=== PATIENT | female | born 1990 | race Caucasian/White ===

== ENCOUNTER 2018-11-08 15:59 | Observation (INO) ==
[2018-11-08] MEDS ORDERED: Isovue-370 500 ML BOTTLE IVP ONE (16:26)
[2018-11-08] MEDS ORDERED: *HR* HYDROcodone/Acet 10/325 mg TABLET PO ONE (16:28)
--- NOTE | 2018-11-08 16:29 | Emergency Department Note ---
Disposition Clinical Impression: Preseptal cellulitis of right eye Disposition: Admitted As Inpatient Condition: Good Time of Disposition: 22:57 General Adult HPI - General Chief complaint: ED General Medical Stated complaint: R eye swelling Time Seen by Provider: 11/08/18 16:16 Source: patient - History of Present Illness Pain Scale: 9 - Related Data Previous Rx's Medication Instructions Recorded cephALEXin [Keflex] 500 mg PO QID #30 capsule 06/14/18 HYDROcodone/Acet 5/325 mg [[place] 1 tab PO Q6H PRN 2 Days #4 tab 11/06/18 5-325 mg] Allergies Allergy/AdvReac Type Severity Reaction Status Date / Time No Known Allergies Allergy Verified 03/17/18 04:03 Past Medical History - Past Medical History Medical history: Reports: no medical history Psychiatric history: Reports: no psych history - Social History Smoking Status: Current every day smoker Smokeless Tobacco Status: No Alcohol use: Reports: none Drug use: Reports: marijuana Physical Exam - General General appearance: alert, in no apparent distress Course Vital Signs Temperature 98.4 F 11/08/18 16:23 Pulse Rate 94 11/08/18 16:23 Respiratory Rate 14 11/08/18 16:23 Blood Pressure 122/81 11/08/18 16:23 O2 Sat by Pulse Oximetry 100 11/08/18 16:23 Temperature 98.5 F 11/08/18 21:53 Pulse Rate 74 11/08/18 21:53 Respiratory Rate 14 11/08/18 21:53 Blood Pressure 103/61 11/08/18 21:53 O2 Sat by Pulse Oximetry 98 11/08/18 21:53 Oxygen Delivery Oxygen Delivery Room Air Medical Decision Making - Lab Data Result diagrams: 11/08/18 16:36 11/08/18 16:36 Lab Results 11/08/18 11/08/18 11/08/18 Range/Units 16:36 16:36 16:36 WBC 8.2 (4.3-11.1) K/mcL RBC 3.75 L (3.82-4.97) M/mcL Hgb 11.1 L (11.5-15.4) g/dL Hct 33.7 L (35.3-44.9) % MCV 89.9 (83.0-100.0) fL MCH 29.6 (28.0-33.3) pg MCHC 32.9 (31.6-35.5) g/dL RDW 12.2 (11.5-14.5) % Plt Count 246 (140-400) K/mcL MPV 9.6 (9.4-12.4) fL Immature Gran % 0.2 (0-4) % Seg Neutrophils % 70.7 % Lymphocytes % 21.3 % Monocytes % 6.2 % Eosinophils % 1.1 % Basophils % 0.5 % Neutrophils # 5.8 (1.6-8.9) K/mcL Lymphocytes # 1.7 (0.6-4.6) K/mcL Monocytes # 0.5 (0.0-1.3) K/mcL Eosinophils # 0.1 (0.0-0.6) K/mcL Basophils # 0.0 (0.0-0.2) K/mcL Sodium 136 (136-145) mEq/L Potassium 3.7 (3.5-5.1) mEq/L Chloride 104 (98-107) mEq/L Carbon Dioxide 27 (23-29) mEq/L BUN 11 (6-20) mg/dL Creatinine 0.46 L (0.60-1.20) mg/dL Est GFR ( Amer) > 60 (> 60) Est GFR (Non-Af Amer) > 60 (> 60) BUN/Creatinine Ratio 24 (6-26) Glucose 94 (70-105) mg/dL Calculated Osmolality 281 (280-300) Lactic Acid 0.6 (0.5-2.2) mmol/L Calcium 9.2 (8.6-10.3) mg/dL Total Bilirubin 0.4 (0.3-1.0) mg/dL AST 16 (13-39) Units/L ALT 17 (7-52) Units/L Alkaline Phosphatase 52 (34-104) Units/L Serum Total Protein 6.7 (6.4-8.9) g/dL Albumin 4.3 (3.5-5.7) g/dL Globulin 2.4 (2.4-3.5) g/dL Albumin/Globulin Ratio 1.8 (1.1-2.2) Serum , Qual (Negative) 11/08/18 Range/Units 16:36 WBC (4.3-11.1) K/mcL RBC (3.82-4.97) M/mcL Hgb (11.5-15.4) g/dL Hct (35.3-44.9) % MCV (83.0-100.0) fL MCH (28.0-33.3) pg MCHC (31.6-35.5) g/dL RDW (11.5-14.5) % Plt Count (140-400) K/mcL MPV (9.4-12.4) fL Immature Gran % (0-4) % Seg Neutrophils % % Lymphocytes % % Monocytes % % Eosinophils % % Basophils % % Neutrophils # (1.6-8.9) K/mcL Lymphocytes # (0.6-4.6) K/mcL Monocytes # (0.0-1.3) K/mcL Eosinophils # (0.0-0.6) K/mcL Basophils # (0.0-0.2) K/mcL Sodium (136-145) mEq/L Potassium (3.5-5.1) mEq/L Chloride (98-107) mEq/L Carbon Dioxide (23-29) mEq/L BUN (6-20) mg/dL Creatinine (0.60-1.20) mg/dL Est GFR ( Amer) (> 60) Est GFR (Non-Af Amer) (> 60) BUN/Creatinine Ratio (6-26) Glucose (70-105) mg/dL Calculated Osmolality (280-300) Lactic Acid (0.5-2.2) mmol/L Calcium (8.6-10.3) mg/dL Total Bilirubin (0.3-1.0) mg/dL AST (13-39) Units/L ALT (7-52) Units/L Alkaline Phosphatase (34-104) Units/L Serum Total Protein (6.4-8.9) g/dL Albumin (3.5-5.7) g/dL Globulin (2.4-3.5) g/dL Albumin/Globulin Ratio (1.1-2.2) Serum , Qual Positive A (Negative) Critical Care Time Critical Care Time: Yes Total Critical Care Time: 30 Attestation: The high probability of a clinically significant, sudden or life threatening deterioration of the [] system(s) required my full and direct attention, intervention and personal management. The aggregate critical care time was [] minutes. This time is in addition to time spent performing reported procedures but includes the following: [] Data Review and interpretation [] Patient assessment and monitoring of vital signs [] Documentation [] Medication orders and management Attestation Statement - Attestation Attestation: I reviewed the residents documentation and agree with the residents assessment and plan of care. I have personally had face to face time with the patient. (Brief History, Brief Exam, and MDM) I personally supervised and was present for the brandon/critical portions of the following procedures completed by the resident: (add procedures performed here). [id number] time provided Patient with right periorbital swelling. Clinically she has cellulitis and a possible underlying abscess. She will require CT imaging, parenteral antibiotics, and likely admission
[2018-11-08 16:55] LABS: Basophils % 0.5 %; Eosinophils # 0.1 K/mcL (0.0-0.6); Eosinophils % 1.1 %; Hematocrit 33.7 % (35.3-44.9); Hemoglobin 11.1 g/dL (11.5-15.4); Immature Granulocytes % 0.2 % (0-4); Lymphocytes # 1.7 K/mcL (0.6-4.6); Lymphocytes % 21.3 %; Mean Corpuscular HGB Conc 32.9 g/dL (31.6-35.5); Mean Corpuscular Hemoglobin 29.6 pg (28.0-33.3); Mean Corpuscular Volume 89.9 fL (83.0-100.0); Mean Platelet Volume 9.6 fL (9.4-12.4); Monocytes # 0.5 K/mcL (0.0-1.3); Monocytes % 6.2 %; Neutrophils # 5.8 K/mcL (1.6-8.9); Platelet Count 246 K/mcL (140-400); Red Blood Count 3.75 M/mcL (3.82-4.97); Red Cell Distribution Width 12.2 % (11.5-14.5); Segmented Neutrophils % 70.7 %; White Blood Count 8.2 K/mcL (4.3-11.1)
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
[2018-11-08] MEDS ORDERED: Ampicillin/Sulbactam 3,000 MG in 0.9 % Sodium Chloride Mini Bag 100 ML IVPB ONE (17:00)
[2018-11-08 17:10] LABS: Alanine Aminotransferase 17 Units/L (7-52); Albumin 4.3 g/dL (3.5-5.7); Albumin/Globulin Ratio 1.8 (1.1-2.2); Alkaline Phosphatase 52 Units/L (34-104); Aspartate Amino Transferase 16 Units/L (13-39); BUN/Creatinine Ratio 24 (6-26); Bilirubin,Total 0.4 mg/dL (0.3-1.0); Blood Urea Nitrogen 11 mg/dL (6-20); Calcium 9.2 mg/dL (8.6-10.3); Carbon Dioxide 27 mEq/L (23-29); Chloride 104 mEq/L (98-107); Globulin 2.4 g/dL (2.4-3.5); Glucose 94 mg/dL (70-105); Osmolality,Calculated 281 (280-300); Potassium 3.7 mEq/L (3.5-5.1); Sodium 136 mEq/L (136-145); Total Protein 6.7 g/dL (6.4-8.9); eGFR For African Americans > 60 (> 60); eGFR For Non-African Americans > 60 (> 60)
[2018-11-08] MEDS ORDERED: *HR* Nalbuphine 10 MG/ML AMPUL IV STA ×2 (17:34→19:41)
[2018-11-08] MEDS ORDERED: Lidocaine/EPI 1:100k 1% 30 ML VIAL INFILT ONE (19:38)
[2018-11-08] MEDS ORDERED: Bacitracin/Polymyxin B PACKET TP STA (20:08)
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
[2018-11-08] MEDS ORDERED: Ondansetron 4 MG/2 ML VIAL IVP PRN (21:08)
[2018-11-08] MEDS ORDERED: Naloxone 0.4 MG/ML INJ IVP PRN (21:09)
[2018-11-08] MEDS ORDERED: traMADol 50 MG TABLET PO PRN (21:09)
[2018-11-08] MEDS ORDERED: Ketorolac 30 MG/ML VIAL IVP PRN (21:09)
[2018-11-08] MEDS: Ringers Solution, Lactated 1,000 ML IVC SCH (22:16)
[2018-11-08] MEDS: *HR* OxyCODONE Immed Rel 5 MG TABLET PO PRN (22:16)
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
[2018-11-09] MEDS: Ampicillin/Sulbactam 3,000 MG in 0.9 % Sodium Chloride Mini Bag 100 ML IVPB SCH ×4 (00:22→17:48)
[2018-11-09] MEDS: Acetaminophen 325 MG TABLET PO PRN ×3 (02:48→22:24)
[2018-11-09] MEDS: *HR* OxyCODONE Immed Rel 5 MG TABLET PO PRN ×2 (05:40→17:53)
[2018-11-09] MEDS: Ringers Solution, Lactated 1,000 ML IVC SCH (05:45)
--- NOTE | 2018-11-09 08:23 | ENT - Progress Note ---
Date of Encounter: 11/09/18 Time of Encounter: 08:30 - Assessment and Plan (1) Abscess of periorbital region Current Visit: Yes Status: Acute White female followed up for periorbital abscess the packing was removed pus was drained the area was cleaned was repacked the swelling is down 75% from yesterday prior to the I&D and the patient is doing well some significant tenderness some residual swelling and firmness should continue to improve on antibiotics pending final report on culture results consider for discharge tomorrow Qualifiers: Laterality: right Qualified Code(s): H05.011 - Cellulitis of right orbit (2) Abscess of right periorbital region Current Visit: Yes Status: Acute Follow-up for periorbital abscess doing well marked reduction in swelling packing changed small amount of purulent discharge recommending continued hospital course using Unasyn and vancomycin until culture results obtained culture still pending highly suspicious for MRSA recommending continued use of heat will check patient first thing in the morning and probably after getting cultures today and making sure were on the right antibiotics this patient can probably go home tomorrow Subjective Patient reports: no new complaints, feels better, pain is less Objective Initial Vital Signs Temp Pulse Resp BP Pulse Ox 98.4 F 94 14 122/81 100 11/08/18 16:23 11/08/18 16:23 11/08/18 16:23 11/08/18 16:23 11/08/18 16:23 - General physical appearance well developed, well nourished, moderate pain - Eyes PERRL, normal ocular movement - ENT normal pinna, normal nares, Other (periorbital swelling 75 % improved small amount of pus repacked wound) - Neck no masses, no lymphadectomy - Respiratory normal expansion, normal respiratory effort, clear to percussion - Labs 11/08/18 16:36 11/08/18 16:36 Diabetes panel 11/08/18 Range/Units 16:36 Sodium 136 (136-145) mEq/L Potassium 3.7 (3.5-5.1) mEq/L Chloride 104 (98-107) mEq/L Carbon Dioxide 27 (23-29) mEq/L BUN 11 (6-20) mg/dL Creatinine 0.46 L (0.60-1.20) mg/dL Glucose 94 (70-105) mg/dL Calcium 9.2 (8.6-10.3) mg/dL AST 16 (13-39) Units/L ALT 17 (7-52) Units/L Alkaline Phosphatase 52 (34-104) Units/L Albumin 4.3 (3.5-5.7) g/dL Calcium panel 11/08/18 Range/Units 16:36 Calcium 9.2 (8.6-10.3) mg/dL Albumin 4.3 (3.5-5.7) g/dL Pituitary panel 11/08/18 Range/Units 16:36 Sodium 136 (136-145) mEq/L Potassium 3.7 (3.5-5.1) mEq/L Chloride 104 (98-107) mEq/L Carbon Dioxide 27 (23-29) mEq/L BUN 11 (6-20) mg/dL Creatinine 0.46 L (0.60-1.20) mg/dL Glucose 94 (70-105) mg/dL Calcium 9.2 (8.6-10.3) mg/dL Adrenal panel 11/08/18 Range/Units 16:36 Sodium 136 (136-145) mEq/L Potassium 3.7 (3.5-5.1) mEq/L Chloride 104 (98-107) mEq/L Carbon Dioxide 27 (23-29) mEq/L BUN 11 (6-20) mg/dL Creatinine 0.46 L (0.60-1.20) mg/dL Glucose 94 (70-105) mg/dL Calcium 9.2 (8.6-10.3) mg/dL Total Bilirubin 0.4 (0.3-1.0) mg/dL AST 16 (13-39) Units/L ALT 17 (7-52) Units/L Alkaline Phosphatase 52 (34-104) Units/L Albumin 4.3 (3.5-5.7) g/dL Consult Discharge Plan - Plan Referrals: NONE,PCP [Primary Care Provider] -
[2018-11-09 10:10] LABS: Basophils % 0.6 %; Eosinophils # 0.1 K/mcL (0.0-0.6); Eosinophils % 1.9 %; Hematocrit 31.5 % (35.3-44.9); Hemoglobin 10.1 g/dL (11.5-15.4); Immature Granulocytes % 0.2 % (0-4); Lymphocytes % 31.7 %; Mean Corpuscular HGB Conc 32.1 g/dL (31.6-35.5); Mean Corpuscular Hemoglobin 29.6 pg (28.0-33.3); Mean Corpuscular Volume 92.4 fL (83.0-100.0); Mean Platelet Volume 10.1 fL (9.4-12.4); Monocytes # 0.4 K/mcL (0.0-1.3); Monocytes % 6.6 %; Neutrophils # 3.7 K/mcL (1.6-8.9); Platelet Count 207 K/mcL (140-400); Red Blood Count 3.41 M/mcL (3.82-4.97); Red Cell Distribution Width 12.2 % (11.5-14.5); White Blood Count 6.2 K/mcL (4.3-11.1)
[2018-11-09 10:28] LABS: BUN/Creatinine Ratio 19 (6-26); Blood Urea Nitrogen 8 mg/dL (6-20); Calcium 8.5 mg/dL (8.6-10.3); Carbon Dioxide 25 mEq/L (23-29); Chloride 105 mEq/L (98-107); Glucose 130 mg/dL (70-105); Osmolality,Calculated 284 (280-300); Potassium 3.6 mEq/L (3.5-5.1); Sodium 137 mEq/L (136-145); eGFR For African Americans > 60 (> 60); eGFR For Non-African Americans > 60 (> 60)
--- NOTE | 2018-11-09 13:36 | Internal Med Progress Note ---
<Sincere Melgoza - Last Filed: 11/09/18 15:56> Hospitalist Progress Note - Encounter Date of Encounter: 11/09/18 - Exam Vitals: Temp Pulse Resp BP Pulse Ox 98.6 F 59 15 101/61 99 11/09/18 10:06 11/09/18 10:06 11/09/18 10:06 11/09/18 10:06 11/09/18 10:06 - Time Spent with Patient Total time spent is greater than 50% in coordination of care (as documented) at patient's floor/unit and/or counseling patient: Internal Medicine: Result - Labs CBC & Chem 7: 11/09/18 09:42 11/09/18 09:42 Labs: Short CBC 11/08/18 11/09/18 Range/Units 16:36 09:42 WBC 8.2 6.2 (4.3-11.1) K/mcL Hgb 11.1 L 10.1 L (11.5-15.4) g/dL Hct 33.7 L 31.5 L (35.3-44.9) % Plt Count 246 207 (140-400) K/mcL Neutrophils # 5.8 3.7 (1.6-8.9) K/mcL BMP 11/08/18 11/09/18 16:36 09:42 Sodium 136 137 Potassium 3.7 3.6 Chloride 104 105 Carbon Dioxide 27 25 BUN 11 8 Creatinine 0.46 L 0.43 L Glucose 94 130 H Calcium 9.2 8.5 L Liver Function 11/08/18 Range/Units 16:36 Total Bilirubin 0.4 (0.3-1.0) mg/dL AST 16 (13-39) Units/L ALT 17 (7-52) Units/L Alkaline Phosphatase 52 (34-104) Units/L Albumin 4.3 (3.5-5.7) g/dL - Impressions Impressions Orbit CT 11/08/18 16:26 IMPRESSION: Right preseptal cellulitis and phlegmon with suggestion of a abscess measuring 1.9 cm in size D/ / Emanuel Valerio / Emanuel Valerio Interpreting Provider: Emanuel Valerio Consult Discharge Plan - Plan Referrals: NONE,PCP [Primary Care Provider] - - Attending Attestation I examined this patient and my medical decision-making was reviewed with the Resident Physician on 11/09/18. I agree with the documented findings, disposition and treatment plan as described except to the extent set forth below. Ms Valdivia is currently admitted for R periorbital preseptal cellulitis. She remains moderate to high risk due to potential for worsening clinical status. Ms Valdivia is doing OK. Feels her eye is open more. No CP or SOB. No fever or chills. Exam: Alert. Comfortable. Dressing R eyelid. Swelling noted periorbital area but can open eye. No drainage. Not tachycardic. No wheeze. No edema. Abd soft. No rash. Plan: Continue IV abx. Awaiting cx results. Appreciate ENT input. <Chung Jones - Last Filed: 11/09/18 17:09> Hospitalist Progress Note - Encounter Date of Encounter: 11/09/18 Time of Encounter: 17:08 - Subjective Interval History: Patient was seen and examined at bedside. States that pain and swelling have improved drastically. Denies headache, fever, chills, chest pain, palpitations, cough, abd pain, N/V/C/D, dysuria, urinary freq/urgency. Pain well managed. Recent serum test showed that patient is , patient was not aware of this previously. Recalls LMP in beginning of September. Denies spotting, abdominal cramping, vaginal discharge, breast tenderness or discharge, nausea, vomiting. Not currently on control. Does not have an established SENIOR ADVISOR or PCP. Cannot recall last Pap smear. No other complaints at this time. - Exam Vitals: Temp Pulse Resp BP Pulse Ox 98.6 F 59 15 101/61 99 11/09/18 10:06 11/09/18 10:06 11/09/18 10:06 11/09/18 10:06 11/09/18 10:06 Exam: Constitutional: alert, oriented, in no acute distress, oriented X 3, well nourished, well-developed Head: normocephalic, atraumatic, Normal contour and symmetry, No lesions or scars, swelling above right eyebrow with erythema, warmth, tenderness. Recent I&D, packing in place, no discharge. Heart: normal, regular rate and rhythm, no murmurs, S1, S2 normal Lungs: clear to auscultation, no wheezes, rales, rhonchi Abdomen: soft, nontender, nondistended, no masses palpable, bowel sounds present and normal, no hepatosplenomegaly, no guarding or rigidity, no CVA tenderness Extremities: no clubbing, cyanosis, or edema, pulses +3/4 in all 4 extremities Skin: dry, intact, no bruising Psych: alert, oriented, cooperative with exam, good eye contact, cognitive function intact, judgment and insight good, speech clear, thought process logical, goal directed - Assessment and Plan (1) Preseptal cellulitis Current Visit: Yes Status: Acute Comments: - denies fever, chills, chest pain, shortness of breath, headache, changes in vision, numbness, tingling - States that pain and swelling have drastically improved - During bedside I&D, purulent discharge highly suggestive of MRSA. Trauma incited from a contaminated muddy freshwater stick alsobrings the possibility of other microbes. - no leukocytosis - packing changed by ENT this AM - continue IV vancomycin 1 g (due to) and IV Unasyn 3 g every 6 (day 1), both antibiotics save for , confirmed with pharmacy. Need at least 24-48H of IV abx and ensure swelling and other inflamm s/s subdue discharging on PO abx - Wound culture, results pending - ENT recs: if continue to improve on antibiotics, consider discharge tomorrow pending final report on culture results. May need to adjust antibiotics pending cultures. - Blood culture, results pending - monitor labs, vitals (2) Current Visit: Yes Status: Acute Comments: - Incidentally found on qualitative urine dipstick. Patient was not previously aware. - LMP recalls early September. Recalls LMP in beginning of September. Denies spotting, abdominal cramping, vaginal discharge, breast tenderness or discharge, nausea, vomiting. Not currently on control. Does not have an established SENIOR ADVISOR or PCP. Cannot recall last Pap smear. - qualitative beta-hCG, [address], still in early (~4 weeks) - advised to follow up with SENIOR ADVISOR outpatient - avoid teratogenic substances (3) Tobacco use Current Visit: Yes Status: Acute Comments: Smoking cessation advised. DVT Prophylaxis: Antiembolic stockings. - Time Spent with Patient Total time spent is greater than 50% in coordination of care (as documented) at patient's floor/unit and/or counseling patient: Internal Medicine: Result - Labs CBC & Chem 7: 11/09/18 09:42 11/09/18 09:42 Labs: Short CBC 11/08/18 11/09/18 Range/Units 16:36 09:42 WBC 8.2 6.2 (4.3-11.1) K/mcL Hgb 11.1 L 10.1 L (11.5-15.4) g/dL Hct 33.7 L 31.5 L (35.3-44.9) % Plt Count 246 207 (140-400) K/mcL Neutrophils # 5.8 3.7 (1.6-8.9) K/mcL BMP 11/08/18 11/09/18 16:36 09:42 Sodium 136 137 Potassium 3.7 3.6 Chloride 104 105 Carbon Dioxide 27 25 BUN 11 8 Creatinine 0.46 L 0.43 L Glucose 94 130 H Calcium 9.2 8.5 L Liver Function 11/08/18 Range/Units 16:36 Total Bilirubin 0.4 (0.3-1.0) mg/dL AST 16 (13-39) Units/L ALT 17 (7-52) Units/L Alkaline Phosphatase 52 (34-104) Units/L Albumin 4.3 (3.5-5.7) g/dL - Impressions Impressions Orbit CT 11/08/18 16:26
[2018-11-10] MEDS: Ampicillin/Sulbactam 3,000 MG in 0.9 % Sodium Chloride Mini Bag 100 ML IVPB SCH ×2 (00:21→07:01)
--- NOTE | 2018-11-10 07:36 | ENT - Progress Note ---
Date of Encounter: 11/10/18 Time of Encounter: 07:30 - Assessment and Plan (1) Abscess of periorbital region Current Visit: Yes Status: Acute White female followed up for periorbital abscess the packing was removed pus was drained the area was cleaned was repacked the swelling is down 75% from yesterday prior to the I&D and the patient is doing well some significant tenderness some residual swelling and firmness should continue to improve on antibiotics pending final report on culture results consider for discharge tomorrow 11/10/18 marked improvement in size of swelling now only 10% of what it was before 2 days ago with persistent drainage decreasing but still draining pus applied ointment and dressing culture results are still pending probably would discharge on Augmentin assuming patients not MRSA otherwise might conside use of Cipro or clindamycin recommending continued use of heat have taken her telephone number and will have the office call her tomorrow morning for an appointment and follow-up on Sunday to assure continued improvement in healing patient advised to use a lot of heat to aid in the drainage process r okay from ENT standpoint to discharge after obtaining culture results in determining what antibiotic to use Qualifiers: Laterality: right Qualified Code(s): H05.011 - Cellulitis of right orbit (2) Abscess of right periorbital region Current Visit: Yes Status: Acute Follow-up for periorbital abscess doing well marked reduction in swelling packing changed small amount of purulent discharge recommending continued hospital course using Unasyn and vancomycin until culture results obtained culture still pending highly suspicious for MRSA recommending continued use of heat will check patient first thing in the morning and probably after getting cultures today and making sure were on the right antibiotics this patient can probably go home tomorrow Subjective Patient reports: no new complaints, feels better Objective Initial Vital Signs Temp Pulse Resp BP Pulse Ox 98.4 F 94 14 122/81 100 11/08/18 16:23 11/08/18 16:23 11/08/18 16:23 11/08/18 16:23 11/08/18 16:23 - General physical appearance well developed, well nourished, no distress, no pain - Eyes PERRL, normal ocular movement - ENT normal pinna, normal nares, normal mucosa, no hearing loss, Other (90% reduction of periorbital swelling packing removed 2 mL of purulent material extruded from the wound) - Neck no masses, no lymphadectomy - Respiratory normal expansion, normal respiratory effort - Neurologic CN 2-12 grossly intact - Labs 11/09/18 09:42 11/09/18 09:42 Diabetes panel 11/09/18 Range/Units 09:42 Sodium 137 (136-145) mEq/L Potassium 3.6 (3.5-5.1) mEq/L Chloride 105 (98-107) mEq/L Carbon Dioxide 25 (23-29) mEq/L BUN 8 (6-20) mg/dL Creatinine 0.43 L (0.60-1.20) mg/dL Glucose 130 H (70-105) mg/dL Calcium 8.5 L (8.6-10.3) mg/dL Calcium panel 11/09/18 Range/Units 09:42 Calcium 8.5 L (8.6-10.3) mg/dL Pituitary panel 11/09/18 Range/Units 09:42 Sodium 137 (136-145) mEq/L Potassium 3.6 (3.5-5.1) mEq/L Chloride 105 (98-107) mEq/L Carbon Dioxide 25 (23-29) mEq/L BUN 8 (6-20) mg/dL Creatinine 0.43 L (0.60-1.20) mg/dL Glucose 130 H (70-105) mg/dL Calcium 8.5 L (8.6-10.3) mg/dL Adrenal panel 11/09/18 Range/Units 09:42 Sodium 137 (136-145) mEq/L Potassium 3.6 (3.5-5.1) mEq/L Chloride 105 (98-107) mEq/L Carbon Dioxide 25 (23-29) mEq/L BUN 8 (6-20) mg/dL Creatinine 0.43 L (0.60-1.20) mg/dL Glucose 130 H (70-105) mg/dL Calcium 8.5 L (8.6-10.3) mg/dL Consult Discharge Plan - Plan Referrals: NONE,PCP [Primary Care Provider] -
[2018-11-10 08:47] LABS: Basophils % 0.8 %; Eosinophils # 0.1 K/mcL (0.0-0.6); Eosinophils % 1.9 %; Hematocrit 31.5 % (35.3-44.9); Hemoglobin 10.2 g/dL (11.5-15.4); Immature Granulocytes % 0.4 % (0-4); Lymphocytes # 2.1 K/mcL (0.6-4.6); Lymphocytes % 39.4 %; Mean Corpuscular HGB Conc 32.4 g/dL (31.6-35.5); Mean Corpuscular Hemoglobin 29.7 pg (28.0-33.3); Mean Corpuscular Volume 91.8 fL (83.0-100.0); Monocytes # 0.3 K/mcL (0.0-1.3); Monocytes % 6.1 %; Neutrophils # 2.7 K/mcL (1.6-8.9); Platelet Count 198 K/mcL (140-400); Red Blood Count 3.43 M/mcL (3.82-4.97); Red Cell Distribution Width 11.9 % (11.5-14.5); Segmented Neutrophils % 51.4 %; White Blood Count 5.3 K/mcL (4.3-11.1)
[2018-11-10 09:31] VITALS: BP 102/65
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
[2018-11-10] MEDS ORDERED: Aminoglycoside Consult 1 EACH MC ONE (12:59)
== END 2018-11-10 13:00 | disposition home or self-care (01) ==
LOC: EMEROOARM 15:59 → 3ANU 15:59 → SUATTDRO 20:29 → 3ANU 21:00
PROVIDERS: ADMIT Internal Medicine; ATTEND Internal Medicine